=== PATIENT | male | born 1955 | race Asian ===

== ENCOUNTER 2016-11-19 08:34 | Inpatient (IN) | payer OTHER ==
[~2016-11-19] VITALS: Ht 165.1 cm; Wt 83.4 kg
[~2016-11-19 08:34] MED LIST: ASPI325T PO; BENZ-26 PO; CALC667C PO; CARV12 PO; FAMO20 PO; FURO20 PO; HYDR-3965 PO; INSNPH SQ; INSREG SQ; KDUR10 PO; LORA10TA7 PO; MOME13HF2 IH; NITR.4 SL; NUT.237L66 PO; RANO500T3 PO; SEVEC800 PO; SIMV-261 PO; SULF-168 PO
[2016-11-19 09:12] LABS: EOSINOPHILS # (AUTO) 0.42 K/uL (0.00-0.70); EOSINOPHILS % (AUTO) 2.79 % (1.0-6.0); HEMATOCRIT 32.1 % (41-53); HEMOGLOBIN 10.7 g/dL (13.5-17.5); LYMPHOCYTES # (AUTO) 1.5 K/uL (1.0-4.8); MEAN CORPUSCULAR HEMOGLOBIN 31.3 pg (26.0-34.0); MEAN CORPUSCULAR HGB CONC 33.4 G/dL (31.0-37.0); MEAN CORPUSCULAR VOLUME 94 fL (80-100); MONOCYTES # (AUTO) 0.1 K/uL (0.1-1.0); MONOCYTES % (AUTO) 0.9 % (2.0-9.0); NEUTROPHILS # (AUTO) 12.9 K/uL (1.8-7.7); PLATELET COUNT (AUTO) 180 K/uL (150-450); RED BLOOD CELL COUNT(AUTO) 3.42 MIL/uL (4.50-5.90); RED CELL DISTRIBUTION WIDTH 14.2 % (11.5-14.5)
[2016-11-19 09:14] LABS: NEUTROPHILS % (AUTO) 86.3 % (40.0-70.0)
[2016-11-19 09:21] LABS: PROTHROMBIN TIME 10.3 SEC (9.4-11.6)
[2016-11-19 09:23] LABS: ANION GAP 13 mmol/L (8-16); CALCIUM, TOTAL 8.3 mg/dL (8.8-10.5); CARBON DIOXIDE 25 mmol/L (22-29); CHLORIDE 101 mmol/L (98-107); CREATININE 13.65 mg/dL (0.60-1.30); GLOMERULAR FILTR. RATE CALC 4 mL/min (>60); POTASSIUM 4.5 mmol/L (3.5-5.1); SODIUM SERUM 139 mmol/L (136-145); UREA NITROGEN, BLOOD 81 mg/dL (7-18)
[2016-11-19 09:29] LABS: RBC MORPHOLOGY COMMENT NORMAL RBC MORPH
[2016-11-19 09:33] LABS: B-TYPE NATRIURETIC PEPTIDE 2930 pg/mL (0-100)
[2016-11-19 09:47] LABS: ALANINE AMINOTRANSFERASE 41 U/L (12-78); ALBUMIN 3.4 g/dL (3.4-5.0); ASPARTATE AMINOTRANSFERASE 30 U/L (15-37); BILIRUBIN,TOTAL 0.4 mg/dL (0.1-1.0); CREATINE KINASE MB 2.8 ng/mL (0-5); CREATINE KINASE, TOTAL 304 U/L (39-308)
[2016-11-19] MEDS ORDERED: ASPIRIN 81 MG CHEWABLE TABLET PO ONE (13:45)
[2016-11-19] MEDS ORDERED: NITROGLYCERIN 2% (1 GM=INCH) PACKET TP ONE (13:45)
[2016-11-19] MEDS ORDERED: BISACODYL 10 MG RECTAL RECTAL SUPPOSITORY PR PRN (15:00)
[2016-11-19] MEDS ORDERED: ACETAMINOPHEN 325 MG TABLET PO PRN (15:00)
[2016-11-19] MEDS ORDERED: ALBUTEROL SULFATE 2.5 MG/0.5 ML NEB SOLUTION NEB PRN (15:00)
[2016-11-19] MEDS ORDERED: DEXTROSE 50%-WATER 25 GM/50 ML SYRINGE IVP PRN (15:15)
[2016-11-19 16:21] VITALS: BP 181/89
[2016-11-19] MEDS: OxyCODONE HCL/ACETAMINOPHEN 5-325 MG TABLET PO PRN (16:23)
[2016-11-19] MEDS ORDERED: CloNIDine HCL 0.1 MG TABLET PO PRN (16:45)
[2016-11-19 20:18] VITALS: BP 119/59
[2016-11-19 20:26] LABS: GLUCOSE,POINT OF CARE 96 MG/DL (70-110)
[2016-11-19] MEDS ORDERED: SIMVASTATIN 40 MG TABLET PO SCH (21:00)
[2016-11-19] MEDS: CARVEDILOL 12.5 MG TABLET PO SCH (22:34)
[2016-11-19] MEDS: LOSARTAN POTASSIUM 50 MG TABLET PO SCH (22:34)
[2016-11-19] MEDS: VITAMIN B COMP/VIT C/FOLIC ACID CAPSULE PO SCH (22:34)
[2016-11-19] MEDS: DOCUSATE SODIUM 100 MG CAPSULE PO SCH (22:34)
[2016-11-19] MEDS: HEPARIN SODIUM,PORCINE 5,000 UNITS/ML VIAL SQ SCH (22:35)
[2016-11-19 23:55] VITALS: BP 118/58
[2016-11-20] MEDS: OxyCODONE HCL/ACETAMINOPHEN 5-325 MG TABLET PO PRN ×2 (03:33→07:48)
[2016-11-20 03:39] VITALS: BP 108/68
[2016-11-20] MEDS: INSULIN ASPART 100 UNITS/ML SQ PRN ×3 (06:21→17:53)
[2016-11-20 06:45] LABS: BASOPHILS % (AUTO) 0.2 % (0.0-2.0); EOSINOPHILS % (AUTO) 3.3 % (1.0-6.0); HEMATOCRIT 30.8 % (41-53); HEMOGLOBIN 9.9 g/dL (13.5-17.5); LYMPHOCYTES # (AUTO) 1.2 K/uL (1.0-4.8); LYMPHOCYTES % (AUTO) 13.7 % (22.0-44.0); MEAN CORPUSCULAR HEMOGLOBIN 30.7 pg (26.0-34.0); MEAN CORPUSCULAR HGB CONC 32.3 G/dL (31.0-37.0); MEAN CORPUSCULAR VOLUME 95 fL (80-100); MONOCYTES # (AUTO) 0.6 K/uL (0.1-1.0); MONOCYTES % (AUTO) 6.7 % (2.0-9.0); NEUTROPHILS # (AUTO) 6.5 K/uL (1.8-7.7); NEUTROPHILS % (AUTO) 76.1 % (40.0-70.0); PLATELET COUNT (AUTO) 180 K/uL (150-450); RED BLOOD CELL COUNT(AUTO) 3.24 MIL/uL (4.50-5.90); RED CELL DISTRIBUTION WIDTH 14.1 % (11.5-14.5); WHITE BLOOD COUNT (AUTO) 8.5 K/uL (4.5-11.0)
[2016-11-20 07:03] VITALS: BP 90/42
[2016-11-20 07:16] LABS: GLUCOSE COMMENT 1 Received Meds; GLUCOSE,POINT OF CARE 171 MG/DL (70-110)
[2016-11-20 07:43] LABS: ALBUMIN 2.9 g/dL (3.4-5.0); BILIRUBIN,TOTAL 0.5 mg/dL (0.1-1.0); CALCIUM, TOTAL 8.4 mg/dL (8.8-10.5); CREATININE 8.95 mg/dL (0.60-1.30); MAGNESIUM 1.9 mg/dL (1.80-2.40); POTASSIUM 4.1 mmol/L (3.5-5.1); TOTAL PROTEIN, SERUM 6.7 g/dL (6.4-8.2)
[2016-11-20 08:30] VITALS: BP 104/51
[2016-11-20] MEDS: DOCUSATE SODIUM 100 MG CAPSULE PO SCH (08:39)
[2016-11-20] MEDS: HEPARIN SODIUM,PORCINE 5,000 UNITS/ML VIAL SQ SCH (08:39)
[2016-11-20] MEDS: VITAMIN B COMP/VIT C/FOLIC ACID CAPSULE PO SCH (08:40)
[2016-11-20] MEDS: CARVEDILOL 12.5 MG TABLET PO SCH (08:41)
[2016-11-20] MEDS: LOSARTAN POTASSIUM 50 MG TABLET PO SCH (08:41)
[2016-11-20] MEDS ORDERED: ATORVASTATIN CALCIUM 40 MG TABLET PO SCH (09:00)
[2016-11-20] MEDS ORDERED: LOSARTAN POTASSIUM 50 MG TABLET PO SCH (09:00)
[2016-11-20] MEDS ORDERED: RANOLAZINE 500 MG SR TABLET PO SCH (09:00)
[2016-11-20] MEDS ORDERED: PRASUGREL HCL 10 MG TABLET PO SCH (09:00)
[2016-11-20] MEDS ORDERED: ISOSORBIDE MONONITRATE 30 MG ER TABLET PO SCH (09:00)
[2016-11-20] MEDS ORDERED: ASPIRIN 81 MG CHEWABLE TABLET PO SCH (09:00)
[2016-11-20] MEDS ORDERED: EPOETIN ALFA 10,000 UNITS/ML VIAL SQ SCH (09:00)
[2016-11-20] MEDS ORDERED: PANTOPRAZOLE SODIUM 40 MG DR TABLET PO SCH (09:00)
[2016-11-20 11:10] VITALS: BP 90/52
[2016-11-20 15:29] VITALS: BP 120/58
[2016-11-20] MEDS ORDERED: SEVEC800 PO (17:30)
[2016-11-20] MEDS ORDERED: CARV3 PO (17:31)
[2016-11-20] MEDS ORDERED: ATOR40TA28 PO (17:31)
[2016-11-20] MEDS ORDERED: ASPI-556 PO (17:31)
[2016-11-20] MEDS ORDERED: ISOS30TA6 PO (17:32)
[2016-11-20] MEDS ORDERED: LOSA50TA37 PO (17:32)
[2016-11-20] MEDS ORDERED: RANO500T3 PO (17:33)
[2016-11-20] MEDS ORDERED: PRAS10TA6 PO (17:33)
[2016-11-20] MEDS ORDERED: FOLI1CAP2 PO (17:34)
[2016-11-20 17:51] LABS: GLUCOSE COMMENT 1 Received Meds; GLUCOSE,POINT OF CARE 232 MG/DL (70-110)
[2016-11-24 18:12] LABS: GLUCOSE COMMENT 1 Received Meds; GLUCOSE,POINT OF CARE 273 MG/DL (70-110)
[2016-11-24 18:12] LABS: GLUCOSE,POINT OF CARE 131 MG/DL (70-110)
== END 2016-11-20 18:20 | disposition home or self-care (01) | DRG 291 ==
LOC: EMS 08:36 → 5N 15:58
PROVIDERS: ADMIT Internal Medicine; ATTEND Internal Medicine
PROC: 5A1D00Z (ICD-10-PCS; principal; 2016-11-19)
DX: I13.2 Hypertensive heart and chronic kidney disease with heart failure and with stage 5 chronic kidney disease, or end stage renal disease (principal); N18.6 End stage renal disease; I50.32 Chronic diastolic (congestive) heart failure; I25.110 Atherosclerotic heart disease of native coronary artery with unstable angina pectoris; E11.22 Type 2 diabetes mellitus with diabetic chronic kidney disease; E78.5 Hyperlipidemia, unspecified; D72.829 Elevated white blood cell count, unspecified; D63.8 Anemia in other chronic diseases classified elsewhere; E78.00 Pure hypercholesterolemia, unspecified; I25.2 Old myocardial infarction; E11.40 Type 2 diabetes mellitus with diabetic neuropathy, unspecified; I35.0 Nonrheumatic aortic (valve) stenosis; I25.9 Chronic ischemic heart disease, unspecified; E11.51 Type 2 diabetes mellitus with diabetic peripheral angiopathy without gangrene; J44.9 Chronic obstructive pulmonary disease, unspecified; I65.29 Occlusion and stenosis of unspecified carotid artery; Z95.1 Presence of aortocoronary bypass graft; Z79.899 Other long term (current) drug therapy; Z79.891 Long term (current) use of opiate analgesic; Z79.4 Long term (current) use of insulin; Z79.82 Long term (current) use of aspirin; Z99.2 Dependence on renal dialysis; Z95.5 Presence of coronary angioplasty implant and graft
CPT/HCPCS: 82962; 83735; 86706; 87340; 90935; 93005; 93306; 99285; J0885; J1644

== ENCOUNTER 2021-09-12 03:38 | Emergency (ER) | payer MEDICARE, OTHER ==
[~2021-09-12] VITALS: Ht 165.1 cm; Wt 63.6 kg
[~2021-09-12 03:38] MED LIST changes: +AMLO-257 PO; +ASPI-556 PO; -ASPI325T PO; +ATOR40TA28 PO; -BENZ-26 PO; -CALC667C PO; +CINA30 PO; +COLC0.6T73 PO; +FOLI1CAP2 PO; -FURO20 PO; -HYDR-3965 PO; -INSNPH SQ; -INSREG SQ; +ISOS30TA92 PO; -KDUR10 PO; +LEVO-72 PO; -LORA10TA7 PO; +LOSA-382 PO; -MOME13HF2 IH; -NITR.4 SL; -NUT.237L66 PO; +PRAS10TA6 PO; -SEVEC800 PO; -SIMV-261 PO; -SULF-168 PO
[2021-09-12] MEDS ORDERED: DiphenhydrAMINE HCL 50 MG/ML VIAL IVP ONE (06:15)
[2021-09-12] MEDS ORDERED: METOCLOPRAMIDE HCL 5 MG/ML 2 ML VIAL IVP ONE (06:15)
[2021-09-12] MEDS ORDERED: KETOROLAC TROMETHAMINE 30 MG/ML VIAL IVP ONE (06:15)
[2021-09-12 07:40] VITALS: BP 134/52
== END 2021-09-12 08:04 | disposition home or self-care (01) ==
LOC: EMS 03:43
DX: R51.9 Headache, unspecified (principal); I12.0 Hypertensive chronic kidney disease with stage 5 chronic kidney disease or end stage renal disease; E11.22 Type 2 diabetes mellitus with diabetic chronic kidney disease; N18.6 End stage renal disease; Z99.2 Dependence on renal dialysis; Z79.899 Other long term (current) drug therapy
CPT/HCPCS: 70450; 96374; 96375; 99284; J1200; J1885; J2765